=== PATIENT | male | born 1995 | race Caucasian/White ===

== ENCOUNTER → 2016-09-24 | Outpatient (CLI) | payer BC ==
[~2016-09-24] MED LIST: ACET325T38 PO; CA C1TAB26; CEFU250T11 PO; CEPH-38 PO; CHOL200035 PO; CLIN-62 PO; CLN150C PO; DICL50TA3 PO; DOCU-143 PO; ENAL10TA PO; HYDR-3062 PO; HYDR-3583 PO; HYDR200T46 PO; IBUP-30 PO; LACT1CAP62 PO; OSLT75CRX PO; PANT40TA3 PO; QUIN324C2 PO; SUCR1TAB36 PO; SULF1TAB38 PO; multi vit
--- OUTSIDE RECORDS SUMMARY | 2016-09-24 12:53 | XMS REPORT | Continuity of Care Document ---
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) Active Problem 12/12/2015 [facility] Obesity (disorder) Active Problem 12/12/2015 [facility] Medications Medication Details Route Status Patient Instructions Ordering Provider Order Date Source quinine sulfate quinine sulfate, 324 mg, daily Active [facility] probiotics probiotics [facility] Vitamin D3 2,000 International_Unit, PO, Refill(s) 0 [facility] clindamycin 300 mg, PO, daily, Refill(s) 0 [facility] enalapril 5 mg oral tablet 5 mg=1 tablet, PO, qDay, # 30 tablet, Refill(s) 11, Pharmacy: [facility] #[id number] [facility] enalapril 10 mg oral tablet 10 mg=1 tablet, PO, qDay, # 90 tablet, Refill(s) 3, Pharmacy: [facility] #[id number] [facility] Allergies, Adverse Reactions, Alerts Immunizations Results Order Name Results Value Reference Range Date Interpretation Comments Source NUA Color Ur YELLOW 12/11/2015 [facility] BasMet Sodium 144 mmol/L 135 - 145 12/11/2015 [facility] Nephrology Clinic Note Nephrology Clinic Note Patient: Brannon Valles Age: 20 years Sex: Male : 1995 Author: TOD Stephenson, JOSEPH, Danna Bella December 11, 2015 Shilpa Haley [address] [place] [address] #4 [address] [place] [address] RE: Brannon Valles : [birth year] Dear Shilpa Haley: Enclosed in this document are my current findings and recommendations. Thank you for the opportunity to participate in Brannon's care. Please feel free to call me at [phone] if you have any questions or need additional information. Sincerely, Danna Stephenson RN, VOCATIONAL COUNSELOR [facility]pertension [facility] Pediatric Nephrology cc: Brannon Valles Visit Information Visit type: Scheduled follow-up. Accompanied by: Mother. Source of history: Self, Mother, Medical record. History limitation: None. Chief Complaint Hypertension History of Present Illness Brannon is a 20 year old male who has a history of delayed puberty, obesity, and Lyme disease. He was last evaluated in the Hypertension Clinic on August 26, [address] Simmons. He is taking enalapril 5 mg once daily. He refuses to have his mother take his blood pressure at home. He reports passing a kidney stone on December 06, 2015. He was seen by his primary care provider and the family reports that if he has a second stone, he will order a renal ultrasound and Brannon is to try to catch the stone. Elevated blood pressure measurements were noted during routine health encounters since 2011. Home monitoring at that time (using automated device) showed blood pressure measurements ranging 140-170/80-90 mmHg. Reportedly, a renal ultrasound (results not available) was normal and the family reduced his salt intake. No other specific evaluation or treatment was introduced at that time. After his blood pressure was noted to elevated at an endocrinology evaluation, he was referred to hypertension clinic for further evaluation. Home blood pressure measurements demonstrated persistent elevated blood pressure measurements measuring 142-157/71-84 mmHg. An evaluation for identifiable causes was completed and was normal. Specifically, basic metabolic panel, lipid panel, plasma metanephrines, plasma renin activity, aldosterone, TSH and free T4, hemoglobin A1c, urinalysis, and abdominal ultrasound with Doppler were normal. He was started on enalapril 5 mg once daily in September 2014 and was to follow up in clinic in December 2014. Prior Evaluation PERTINENT LABORATORY RESULTS Electrolytes and renal function 08/28/15: sodium 139 mmol/L, potassium 4.1 mmol/L, calcium 10 mg/dL, glucose 122 mg/dL, creatinine 0.8 mg/dL 11/29/13: sodium 141 mmol/L, potassium 4.8 mmol/L, calcium 10 mg/dL, glucose 80 mg/dL, creatinine 0.7 mg/dL Lipid panel: 08/28/15: total cholesterol 166 mg/dL, HDL-C 38 mg/dL, LDL-C 82 mg/dL, triglycerides 231 mg/dL(H) 09/20/14: total cholesterol 144 mg/dL, HDL-C 39 mg/dL, LDL-C 80 mg/dL, triglycerides 123 mg/dL Plasma metanephrines 09/20/14: metanephrine 64 pg/mL, normetanephrine 21 pg/mL Plasma renin activity 09/20/14: 0.69 ng/dL/hour Aldosterone 09/20/14: 4.3 ng/dL Thyroid function: TSH 08/28/15: 2.4 mcIU/mL Free T4 09/20/14: 0.86 nanogram/dL Hemoglobin A1c 11/29/13: 5.9 % Urinalysis 08/26/15: specific gravity >1.030, pH 6.5, glucose(-), ketones(-), protein(-), blood(-), nitrite(-), leukocyte esterase(-) Radiology results: Abdominal Doppler ultrasound 09/20/14 1. There is no evidence for a solid renal mass or for an acute abnormality of either kidney 2. The renal arteries were not well imaged, but, were visualized, there is no evidenced for renal artery stenosis. Cardiology results: None Histories Past Medical History: Active Delayed puberty (SNOMED CT 197709345) Obesity (SNOMED CT 6694003200). Family History: Hypertension: Maternal Aunt, PGM, MGGM's Heart Disease: GGM's, GGF's Hyperlipidemia: Stroke: Other:. Procedure history: Incision and drainage (left hand infection).. Social History Patient lives with parents and brother. Health Status Adverse Reactions: Allergic Reactions (Selected) No Known Adverse Reactions. Current medications: (Selected) Prescriptions Prescribed enalapril 5 mg oral tablet: See Instructions, TAKE ONE TABLET BY MOUTH DAILY, 30 tablet, 5 Refill(s). Review of Systems Constitutional: Fatigue. Eye: No visual disturbances. Ear/Nose/Mouth/Throat: No epistaxis. Respiratory: Snoring - without noted gasping or pauses, wakes easily in AM, No shortness of breath. Cardiovascular: Occasional dizziness, No chest pain, No palpitations, No peripheral edema, No syncope. Musculoskeletal: Back pain: On the left side. Integumentary: No rash. Neurologic: Dizziness, No headache, No syncope. Review of System not commented on or stated in HPI/PMH are negative Physical Examination Measurements: Height: 187.6 cm, 94th percentile, Z score 1.5 Weight: 134 kg, >99th percentile, Z score 3 BMI: 38.1 kg/m2, >99th percentile, Z score 2.5 Vital Signs: Blood pressure: 158/70 mmHg, repeat manual 158/70 mmHg Pulse: 73 beats per minute General: Alert and oriented, No acute distress, Young man. Eye: Normal conjunctiva, Clear without drainage. HENT: Normocephalic, Oral mucosa is moist, No pharyngeal erythema. Neck: Supple, Non-tender, No lymphadenopathy. Respiratory: Lungs are clear to auscultation, Respirations are non-labored, Breath sounds are equal, Symmetrical chest wall expansion. Cardiovascular: Normal rate, Regular rhythm, No murmur, Normal peripheral perfusion, No edema. Gastrointestinal: Soft, Non-tender, Non-distended, No organomegaly. Genitourinary: Deferred. Musculoskeletal: No swelling, No deformity. Integumentary: Warm, Dry, No rash. Neurologic: Alert, Oriented, No focal defects. Psychiatric: Cooperative, Appropriate mood & affect, Actively participated in clinic visit . Review / Management Results review Chemistries 12/11/15: sodium 144 mmol/L, potassium 4.8 mmol/L, chloride 103 mmol, CO2 28 mmol/L, calcium 9.7 mg/dL, glucose 71 mg/dL, BUN 12 mg/dL, creatinine 0.77 mg/dL Urinalysis 12/11/15: SG >/=1.030, pH 6, glucose(-), ketones(-), protein(-), blood( -), nitrite(-), leukocyte esterase(-) Interpretation: Normal results Impression and Plan Diagnosis Overweight ([facility] [id number]). History of renal calculus ([facility] [id number]). Essential hypertension ([facility] [id number]). Plan 1. Goal for Brannon's blood pressure is less than 130/80 mmHg due to his young age (hypertension is defined as >140/90 mmHg in an adult) 2. Medication: increase enalapril to 10 mg once daily 3. Lifestyle modifications: continue being physically active and increase fruit and vegetable intake and avoid sodium 4. Document blood pressure when taken in your phone, so can be reviewed at doctor's appointments 5. Renal ultrasound with Doppler 6. Information provided on kidney stones and recommendations to prevent future stones Follow up with your primary care provider in 2-3 months for further adjustment of blood pressure medication TEACHBACK used to confirm understanding ADDENDUM: further review of medical record, Brannon has had a Doppler study of his kidneys and this study does not need to be repeated. Family will be informed on 12/15/2015 Provider Name: Danna Stephenson RN, VOCATIONAL COUNSELOR</br> Electronically Signed On: 08:33 PM</br> Provider Name: Danna Stephenson RN, VOCATIONAL COUNSELOR</br> Electronically Signed On: 12/12/2015 08:35 PM</br> 12/11/2015 Provider Name: Danna Stephenson RN, VOCATIONAL COUNSELOR Electronically Signed On: 12/12/15 08:33 PM Provider Name: Danna Stephenson RN, VOCATIONAL COUNSELOR Electronically Signed On: 12/12/2015 08:[address] [facility] NUA Color Ur YELLOW 08/26/2014 [facility] Test T&F Testosterone Total 93 ng/dL 12/03/2013 LOW -- REFERENCE VALUE -- 300-1200 John Reference Stages* range (ng/dL) I (pre-pubertal) <7-20 II 8-66 III 26-800 IV 85-1200 V (young adult) 300-950 *Puberty onset (transition from John stage I to John stage II) occurs for boys at a median age of 11.5 (+/-2) years. For boys there is no proven relationship between puberty onset and body weight or ethnic origin. Progression through John stages is variable. John stage V (adult) should be reached by age 18. Testing performed by Liquid Chromatography-Tandem Mass Spectrometry (LC-MS/MS). Test Performed by: [facility] [place] [address] Containers Sales Representative: Octavio Álvarez III, M.D. [facility] TTG-A R Transglutaminase IgA 4.08 unit(s) 0.00 - 19.99 NA Reference Ranges: <20 unit=Negative 20-40 unit=Indeterminate >40 unit=Positive [facility] FSH Follicle Stimulating Hormone 5.5 mIU/mL 1.5 - 14.0 [facility] IgA Historical IgA Historical No result 11/30/2013 NA Added by Discern [facility] TTG Algo IgA 133.0 mg/dL 69.0 - 348.0 11/30/2013 [facility] IGF1 IGF-1 507 ng/mL 11/29/2013 NA IGF-1 John Stage Reference Ranges Female John Stage Median Range I 159 49-342 II 269 115-428 III 412 145-760 IV 504 244-787 V 408 143-859 Male John Stage Median Range I 152 63-279 II 190 75-420 III 406 94-765 IV 577 192-861 V 422 171-814 [facility] IGFBP3 IGF BP-3 8.7 mcg/mL 2.1 - 7.3 11/29/2013 [facility] LH Luteinizing Hormone 1.1 mIU/mL 1.4 - 7.7 11/29/2013 LOW [facility] ESR Sed Rate 6 mm/hr 0 - 15 11/29/2013 [facility] BasMet Sodium 141 mmol/L 135 - 145 11/29/2013 [facility] HepFun Protein Total 7.8 gm/ dL 6.5 - 8.3 11/29/2013 [facility] Hgb A1c Hemoglobin A1c 5.9 % 4.0 - 6.0 11/29/2013 [facility] DIFA Differential Method Auto Diff 11/29/2013 [facility] CBCD WBC 6.28 x10(3) mcL 4.50 - 11.00 11/29/2013 NA [facility] DIFA % Neutro 50.1 % 11/29/2013 NA [facility] Vital Signs Vital Sign Value Date Comments Source Systolic Blood Pressure Cuff Monitored <content ID=' [id number]'>154</content>/<content ID='[id number]'>71</content> mm[Hg ] 12/11/2015 [facility] Heart Rate 73 bpm 12/11/2015 [facility] Temperature Celsius 37 Mariana [facility] Height/Length 187.6 cm 2015 [facility] Current Weight 134 kg 2015 [facility] Heart Rate 80 bpm 08/26/2014 [facility] Systolic Blood Pressure Cuff Monitored <content ID=' [id number]'>143</content>/<content ID='[id number]'>68</content> mm[Hg ] 08/26/2014 [facility] Current Weight 127.4 kg 08/26 [facility] Height/Length 184.1 cm 2014 [facility] Current Weight 127.4 kg 08/26 [facility] Height/Length 184.1 cm 2014 [facility] Systolic Blood Pressure Cuff Monitored <content ID=' [id number]'>143</content>/<content ID='[id number]'>68</content> mm[Hg ] 08/26/2014 [facility] Heart Rate 80 bpm 08/26/2014 [facility] Encounters Location Location Details Encounter Type Encounter Number Reason For Visit Attending Provider ADM Date DC Date Status Source CMB CMB REF [id number] F/U Endo Geena Massey 11/29/2013 11/29/2013 Active [facility] CMB CMB REF [id number] labs Geena Massey 11/29/2013 [id number] Geena Nguyenchen 08/01/20142014 [facility] CLI [id number] Hypertension Sal Nelsondeng 08/26/2014 08/26/2014 [facility] CLI [id number] Danna Stephenson 12/11/2015 [facility]11/[id number] Unknown Provider 06/30/2013 [facility] Procedures Plan of Care Social History Assessment and Plan Family History Value Date Source Advance Directives Order Name Results Value Date Source
--- NOTE | 2016-09-24 15:32 | Diagnostic Imaging Report ---
INDICATION: Thyromegaly. EXAMINATION: Thyroid sonography was performed in the routine fashion. COMPARISON: No prior study for comparison. FINDINGS: The right thyroid lobe measures 4.4 x 1.5 x 1.8 cm. The left thyroid measures 4.4 x 1.4 x 1.4 cm. There is no thyroid nodule or abnormal vascularity. IMPRESSION: Normal thyroid sonography. Dictated by: Dictated on workstation # [id number]
== END ==
LOC: RAD 12:46
PROVIDERS: ATTEND Nurse Practitioner Family
DX: E01.0 Iodine-deficiency related diffuse (endemic) goiter (principal)
CPT/HCPCS: 76536

== ENCOUNTER 2019-02-15 10:30 | Outpatient (CLI) | payer BC ==
[~2019-02-15] VITALS: Ht 195.6 cm; Wt 135.8 kg
== END 2019-02-15 10:38 | disposition home or self-care (01) ==
LOC: PREOP 10:30
PROVIDERS: ATTEND Surgery
DX: Z01.818 Encounter for other preprocedural examination (principal)

== ENCOUNTER 2019-02-20 12:57 | Day surgery (SDC) | payer BC ==
[~2019-02-20] VITALS: Ht 195.6 cm; Wt 135.8 kg
[2019-02-20] VITALS (7 sets, daily range): BP systolic 132–181; BP diastolic 62–112
[~2019-02-20 12:57] MED LIST changes: +LACTATED RINGERS 1,000 ML IV ONE
[2019-02-20] MEDS ORDERED: LACTATED RINGERS 1,000 ML IV PRN (13:15)
[2019-02-20] MEDS ORDERED: PROPOFOL INJECTION 50 ML IV ONE ×2 (13:47→14:07)
[2019-02-20] MEDS ORDERED: MIDAZOLAM 2 MG/2 ML (VERSED) VIAL ONE ×2 (13:47→13:57)
[2019-02-20] MEDS ORDERED: DOCU-143 PO (14:34)
--- NOTE | 2019-02-20 14:36 | Discharge Inst-Simple/Standard ---
Discharge Inst-Standard Discharge Medications New, Converted or Re-Newed RX: Other Patient Instructions/Follow Up Plan of Care/Instructions/FU: Scar- 2 weeks. Diltiazem cream at [facility]. Activity as Tolerated: Yes Discharge Diet: Regular Diet (high fiber) KT BHATT DO Feb 20, 2019 14:36
--- NOTE | 2019-02-20 14:40 | Progress Note-Post Operative ---
Post-Operative Progess Note Surgeon (s)/Dental Service Technician (s) Surgeon KT BHATT DO Dental Service Technician: na Pre-Operative Diagnosis rectal bleeding, change in bowel habits Post-Operative Diagnosis posterior anal fissure Procedure & Operative Findings Date of Procedure 02/20/19 Procedure Performed/Findings colonoscopy Anesthesia Type per four roll calender operator Estimated Blood Loss Estimated blood loss (mL): none Specimens/Packing Specimens Removed na KT BHATT DO Feb 20, 2019 14:40
--- NOTE | 2019-02-20 19:09 | OPERATIVE REPORT ---
DATE OF SERVICE: 02/20/2019 PREOPERATIVE DIAGNOSIS: Rectal bleeding, change in bowel habits. POSTOPERATIVE DIAGNOSIS: Posterior anal fissure. PROCEDURE: Colonoscopy. SURGEON: Kt Abbott DO ANESTHESIA: Per TRANSITION LEAD. ESTIMATED BLOOD LOSS: None. COMPLICATIONS: None. INDICATIONS: The patient is a 23-year-old male with change in bowel habits and has had some rectal bleeding. He understands risks and benefits of procedure and wished to proceed with procedure. Consent was signed in the chart. The patient was taken to the endoscopy suite, placed in left lateral recumbent position. Timeout was performed. Digital rectal exam was performed. No palpable polyps, masses or ulcerations. Posterior anal fissure was noted. Scope was inserted in the rectum, advanced all the way to the cecum with minimal difficulty. Prep was adequate. Scope was then slowly retracted back. There were no polyps, mass or ulceration of the cecum, ascending, transverse, descending and sigmoid colon. Once in the rectum, scope was retroflexed noting no other pathology. Scope was returned to its normal position, slowly withdrawn until completely removed. The patient tolerated the procedure well without any complications. He was taken to recovery room in stable condition. RECOMMENDATIONS: The patient will be started on diltiazem cream. The patient also started on stool softener 100 mg b.i.d. The patient was instructed on increased high fiber diet. We will reevaluate in 2 weeks in the office. If any problems before that, he will be seen at that time. Job ID: [id number] DocumentID: [id number] Dictated Date: 02/20/2019 14:42:44 Health Specialist Date: 02/20/2019 19:08:50 Dictated By: KT ABBOTT DO
== END 2019-02-20 15:15 | disposition home or self-care (01) ==
LOC: ENDO 12:57
PROVIDERS: ATTEND Surgery
DX: K60.2 Anal fissure, unspecified (principal); K59.00 Constipation, unspecified; I10 Essential (primary) hypertension; R56.9 Unspecified convulsions; E11.9 Type 2 diabetes mellitus without complications; Z68.41 Body mass index [BMI] 40.0-44.9, adult; Z79.899 Other long term (current) drug therapy